=== PATIENT | female | born 1995 | race Caucasian/White ===

== ENCOUNTER 2018-03-09 15:57 | Inpatient (IN) | payer OTHER, MEDICAID ==
[2018-03-09] MEDS ORDERED: Nalbuphine 20 MG/ML 1 ML Syringe IVPUSH PRN (16:39)
[2018-03-09] MEDS ORDERED: Sodium Chloride 0.9% 10 ML Syringe FLUSH PRN (16:39)
[2018-03-09] MEDS ORDERED: Oxytocin/Lactated Ringers 10 UNIT/1,000 ML BAG IV SCH ×2 (16:45→22:53)
[2018-03-09] MEDS ORDERED: Lactated Ringers 1,000 ML IV SCH (16:45)
--- NOTE | 2018-03-09 18:07 | PCM.LDHP ---
L&D History of Present Illness - General Date of Service: 03/09/18 Admit Problem/Dx: Patient Status Order with Admit Dx/Problem 03/09/18 16:39 Patient Status [ADT] Routine Admission Diagnosis/Problem Admission Diagnosis/Problem Source of Information: Patient History Limitations: Reports: No Limitations - History of Present Illness Introduction:: Cassandra Wise is a 22 year old at 37 weeks 1 day by LMP consistent with 21 week ultrasound ([facility] 03/29/2018) who presents for spontaneous rupture membranes. She reports that around 3:30 she had a large gush of fluid and has had continuous leaking of fluid since then. She reports that the fluid was clear and denies any vaginal bleeding. She reports that she has been having some contractions about every 10 minutes that last for about a minute at a time. She rates the contractions at 4-5/10 on a pain scale. She reports good movement. Timing/Duration: Reports: sudden onset (gush of fluid at around 3:30 PM), intermittent (contractions every 10 minutes) Location, : Reports: Lower back, Pelvic Quality: Reports: Ache Severity: Moderate Pain Score: 4 Improves with: Reports: None Worsens with: Reports: None Associated Symptoms: Reports: vaginal fluid, large amount. Denies: vaginal bleeding, vaginal discharge Present Illness Comments:: Cassandra Wise is a 22-year-old at 37 weeks 1 day by LMP consistent with 21 week ultrasound. She has had routine care with Dr. Gipson since 12 weeks gestational age. Review of her labs shows A+ blood type with negative antibody screen. Her hematocrit was 39.0 with hemoglobin of 13.4 and platelets of 254 on 09/18/2017. She was rubella equivocal in 2018. Her RPR, hepatitis B surface antigen and HIV were all negative. Her gonorrhea and chlamydia tests were negative. Her 1 hour glucose test was normal at 122 and repeat hemoglobin was 11.9 with platelets of 237 on 01/16/2018. She was GBS negative. She had a normal anatomy ultrasound done on 11/13/2017. Her Pap smear was normal. Last was delivery at term, 07/07/2013, 40 weeks 2 days, 3345 g (7 lbs. 6 oz.), , no complications during the , no epidural with delivery Her has been complicated by: * Asthma in - she reports that she has only had to use her rescue inhaler during a illness in the summer months of the . * Rubella equivocal, patient will receive vaccine after delivery * History of MRSA infection after her hand surgery during high school, she has had testing done during this that was negative. * History of OCD, anxiety and depression, currently not requiring any medications. She has not been on medications for several years. 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 - Infectious Disease History Infectious Disease History: Reports: MRSA, Other (See Below) Other Infectious Disease History: 3 negative tests in 2011 - Past Surgical History HEENT Surgical History: Reports: Eye Surgery Musculoskeletal Surgical History: Reports: Other (See Below) Other Musculoskeletal Surgeries/Procedures:: Hand surgery Social & Family History - Tobacco Use Smoking Status *Q: Former Smoker Packs/Tins Daily: 0.2 Used Tobacco, but Quit: Yes Month/Year Tobacco Last Used: 09/2015 - Tobacco Core Measures Tobacco Use/Smoking Within Last 30 Days: No Smokeless Tobacco Use in Last 30 Days: No - Alcohol Use Alcohol Use History: No - Recreational Drug Use Recreational Drug Use: Yes Recreational Drug Type: Reports: Marijuana/Hashish - Living Situation & Occupation Living situation: Reports: with Significant Other H&P Review of Systems - Review of Systems: Review Of Systems: See Below General: Denies: Fever, Chills, Malaise, Weakness, Fatigue HEENT: Denies: Headaches, Rhinitis, Post Nasal Drip, Sinus Congestion, Sore Throat, Visual Changes Pulmonary: Denies: Shortness of Breath, Wheezing, Cough Cardiovascular: Denies: Chest Pain, Palpitations, Dyspnea on Exertion Gastrointestinal: Denies: Abdominal Pain, Constipation, Diarrhea, Nausea, Vomiting Genitourinary: Denies: Dysuria, Frequency, Burning, Pain, Urgency Musculoskeletal: Reports: Back Pain (and hip pain). Denies: Joint Pain, Muscle Pain Skin: Denies: Rash, Lesions Psychiatric: Denies: Depression, Anxiety L&D Exam - Exam Exam: See Below - Vital Signs Vital Signs: Last Vital Signs Temp 36.3 C 03/09/18 16:04 Pulse 89 03/09/18 16:04 Resp 18 03/09/18 16:04 BP 123/74 03/09/18 16:04 Pulse Ox Weight: 56.518 kg - OB Specific Contraction Duration (sec): 30-45 Contraction Frequency (min): 2-3 Contraction Intensity: Mild Movement: Active Heart Tones: Present Heart Tones per Min: 120 (+15 x 15 accelerations, no decelerations) Heart Rate (FHR) Variability: Moderate (6-25 bmp) Presentation: Vertex Estimated Weight: 6-6.5 pounds by Rafat's - Arriaga Score Arriaga Score Cervix Position: Midposition Arriaga Score Consistency: Soft Arriaga Score Effacement: >80% (100%) Arriaga Score Dilation: 3-4 cm (3 cm) Arriaga Score Infant's Station: -2 Arriaga Score Total: 9 - Exam General: Alert, Oriented HEENT: Conjunctiva Clear, EOMI Neck: Supple, Trachea Midline Lungs: Clear to Auscultation, Normal Respiratory Effort Cardiovascular: Regular Rate, Regular Rhythm GI/Abdominal Exam: Soft, Non-Tender, No Distention, Other (gravid). No: Guarding, Rigid, Rebound Extremities: Normal Inspection, Normal Range of Motion, No Pedal Edema Skin: Warm, Dry, Intact Psychiatric: Alert, Normal Affect, Normal Mood - Patient Data Lab Results Last 24 hrs: Laboratory Results - last 24 hr 03/09/18 Range/Units 17:06 WBC 7.36 (3.98-10.04) K/mm3 RBC 3.85 L (3.98-5.22) M/mm3 Hgb 11.4 (11.2-15.7) gm/L Hct 35.0 (34.1-44.9) % MCV 90.9 (79.4-94.8) fl MCH 29.6 (25.6-32.2) pg MCHC 32.6 (32.2-35.5) g/dl RDW Std Deviation 43.9 (36.4-46.3) fL Plt Count 182 (182-369) K/mm3 MPV 11.9 (9.4-12.3) fl Neut % (Auto) 65.8 (34.0-71.1) % Lymph % (Auto) 23.0 (19.3-51.7) % [place] % (Auto) 9.6 (4.7-12.5) % Eos % (Auto) 1.2 (0.7-5.8) Baso % (Auto) 0.1 (0.1-1.2) % Neut # (Auto) 4.84 (1.56-6.13) K/mm3 Lymph # (Auto) 1.69 (1.18-3.74) K/mm3 [place] # (Auto) 0.71 H (0.24-0.36) K/mm3 Eos # (Auto) 0.09 (0.04-0.36) K/mm3 Baso # (Auto) 0.01 (0.01-0.08) K/mm3 Result Diagrams: 03/09/18 17:06 - Problem List (1) 37 weeks gestation of SNOMED Code(s): 73645277 ICD Code: Z3A.37 - 37 WEEKS GESTATION OF Status: Acute Current Visit: Yes (2) Rubella non-immune status, antepartum SNOMED Code(s): 079230389 ICD Code: O99.89 - OTH DISEASES AND CONDITIONS COMPL PREG/CHLDBRTH; Z28.3 - UNDERIMMUNIZATION STATUS Status: Acute Current Visit: Yes (3) Asthma during SNOMED Code(s): 19651225393136 ICD Code: O99.519 - DISEASES OF THE RESP SYS COMP , UNSP TRIMESTER; J45.909 - UNSPECIFIED ASTHMA, UNCOMPLICATED Status: Acute Current Visit: Yes (4) History of anxiety disorder SNOMED Code(s): 339019149 ICD Code: Z86.59 - PERSONAL HISTORY OF OTHER MENTAL AND BEHAVIORAL DISORDERS Status: Acute Current Visit: Yes Problem List Initiated/Reviewed/Updated: Yes Orders Last 24hrs: Active Orders 24 hr Category Date Time Status Patient Status [ADT] Routine ADT 03/09/18 16:39 Active Activity as Tolerated [RC] PFP Care 03/09/18 16:39 Active Communication Order [RC] ASDIRECTED Care 03/09/18 16:39 Active Heart Tones [RC] ASDIRECTED Care 03/09/18 16:39 Active Non Stress Test [RC] PER UNIT ROUTINE Care 03/09/18 16:39 Active Notify Provider [RC] PFP Care 03/09/18 16:39 Active Notify Provider [RC] PRN Care 03/09/18 16:39 Active Peripheral IV Care [RC] . DIRECTED Care 03/09/18 16:39 Active Vital Signs [RC] PER UNIT ROUTINE Care 03/09/18 16:39 Active Regular Diet [DIET] Diet 03/09/18 Lunch Active RAPID PLASMA REAGIN,RPR [CHEM] Routine Lab 03/09/18 17:06 Received Lactated Ringers [Ringers, Lactated] 1,000 ml Med 03/09/18 16:45 Active IV ASDIRECTED Nalbuphine [Nubain] Med 03/09/18 16:39 Active 10 mg IVPUSH Q2H PRN Oxytocin/Lactated Ringers [Pitocin in LR 10 Units/1,000 Med 03/09/18 16:45 Active ML] 10 unit in 1,000 ml IV .CONTINUOUS Sodium Chloride 0.9% [Saline Flush] Med 03/09/18 16:39 Active 10 ml FLUSH ASDIRECTED PRN Electronic Heart Tones Ext w TOCO [WOMSER] Oth 03/09/18 16:39 Ordered Routine Electronic Heart Tones Internal [WOMSER] Per Unit Oth 03/09/18 16:39 Ordered Routine Peripheral IV Insertion Adult [OM.PC] Routine Oth 03/09/18 16:39 Ordered Resuscitation Status Routine Resus Stat 03/09/18 16:39 Ordered Medication Orders Lactated Ringer's (Ringers, Lactated) 1,000 mls @ 100 mls/hr IV ASDIRECTED RIKY Oxytocin/Lactated Ringer's (Pitocin In Lr 10 Units/1,000 Ml) 10 unit in 1,000 mls @ 500 mls/hr IV .CONTINUOUS RIKY Nalbuphine HCl (Nubain) 10 mg IVPUSH Q2H PRN PRN Reason: pain Sodium Chloride (Saline Flush) 10 ml FLUSH ASDIRECTED PRN PRN Reason: Keep Vein Open Assessment/Plan Comment:: Refer to observation for spontaneous rupture of membranes Start Pitocin for augmentation of labor if patient has not had any change in cervical dilation after her next cervical exam. Her most recent cervical exam was unchanged at 3 cm over the course of [address] IV and have Lactated Ringer's at 125 ml/hr May have small amounts of regular diet Activity as tolerated May have epidural as desired. Plans to avoid epidural if possible. Plans to breast-feed after delivery Anticipate vaginal delivery unless otherwise indicated Gavin Wahl M.D. 6:17 PM 03/09/2018
[2018-03-09] MEDS ORDERED: Lidocaine 1% 50 ML MDV ONE (21:22)
--- NOTE | 2018-03-09 21:59 | PCM.DEL ---
L & D Note - General Info Date of Service: 03/09/18 Mother's Due Date: 03/29/18 - Delivery Note Labor: Spontaneous Delivery Outcome: Livebirth Infant Delivery Method: Spontaneous Vaginal Delivery-Single Presentation: Left Occiput Anterior (AI) Nuchal Cord: None Prep: Povidone-Iodine (Betadine Anesthesia Type: Local Anesthetic: Lidocaine (Xylocaine) 1% Plain Local Anesthetic Volume: Other (10 mL) Amniotic Fluid Description: Clear Episiotomy Type: None Laceration: 1st Degree, Labial (Left labial repaired with 4-0 Vicryl) Suture type: Vicryl Suture size: 4-0 (Running fashion) Placenta: Intact, Spontaneous Cord: 3 Vessels Estimated Blood Loss: 250 Resuscitation Needed: No [place]: Bulb Syringe, Stimulated, Warmed, [place] Used Provider: Gavin Wahl Score 1 min: 8 Score 5 min: 9 Second Stage Interventions: Reports: Pushing Effectively, Pushing, Stirrups/Leg Supports Delivery Comments (Free Text/Narrative):: Stage I: Cassandra Wise was admitted for spontaneous rupture membranes. On admission her cervix was dilated to 3 cm. She was GBS negative. She was roxane regularly on her own and made slow progression to 5 cm. She then quickly progressed to complete and pushing. Stage II: On 03/09/2018 she had a normal vaginal delivery of a live male at 2116. Apgars of 8 & 9. Weight of 2865 g (6 lbs 5 oz). Length of 19 inches. There was nuchal cord. Infant was delivered in AI position. The cord was doubly clamped and cut by father of the infant. Infant was placed on mother's abdomen. Stage III: She had a spontaneous delivery of an intact placenta in Too presentation. Three vessel cord. She was given pitocin and fundal massage. She had a left labial first-degree laceration that was repaired with 4-0 Vicryl in running fashion. Mom and baby were stable to recovery. EBL of 250 mL. Gavin Wahl MD 9:53 PM 03/09/2018 - General Info Date of Service: 03/09/18 - Patient Data Vitals - Most Recent: Last Vital Signs Temp 36.3 C 03/09/18 16:04 Pulse 89 03/09/18 16:04 Resp 18 03/09/18 16:04 BP 123/74 03/09/18 16:04 Pulse Ox Weight - Most Recent: 56.518 kg Lab Results Last 24 Hours: Laboratory Results - last 24 hr 03/09/18 Range/Units 17:06 WBC 7.36 (3.98-10.04) K/mm3 RBC 3.85 L (3.98-5.22) M/mm3 Hgb 11.4 (11.2-15.7) gm/L Hct 35.0 (34.1-44.9) % MCV 90.9 (79.4-94.8) fl MCH 29.6 (25.6-32.2) pg MCHC 32.6 (32.2-35.5) g/dl RDW Std Deviation 43.9 (36.4-46.3) fL Plt Count 182 (182-369) K/mm3 MPV 11.9 (9.4-12.3) fl Neut % (Auto) 65.8 (34.0-71.1) % Lymph % (Auto) 23.0 (19.3-51.7) % [place] % (Auto) 9.6 (4.7-12.5) % Eos % (Auto) 1.2 (0.7-5.8) Baso % (Auto) 0.1 (0.1-1.2) % Neut # (Auto) 4.84 (1.56-6.13) K/mm3 Lymph # (Auto) 1.69 (1.18-3.74) K/mm3 [place] # (Auto) 0.71 H (0.24-0.36) K/mm3 Eos # (Auto) 0.09 (0.04-0.36) K/mm3 Baso # (Auto) 0.01 (0.01-0.08) K/mm3 Med Orders - Current: Current Medications Lactated Ringer's (Ringers, Lactated) 1,000 mls @ 100 mls/hr IV ASDIRECTED RIKY Oxytocin/Lactated Ringer's (Pitocin In Lr 10 Units/1,000 Ml) 10 unit in 1,000 mls @ 500 mls/hr IV .CONTINUOUS RIKY Nalbuphine HCl (Nubain) 10 mg IVPUSH Q2H PRN PRN Reason: pain Sodium Chloride (Saline Flush) 10 ml FLUSH ASDIRECTED PRN PRN Reason: Keep Vein Open Discontinued Medications Lidocaine HCl (Xylocaine 1%) Confirm Administered Dose 50 ml .ROUTE .K-MED ONE Stop: 03/09/18 21:23 - Problem List & Annotations (1) 37 weeks gestation of SNOMED Code(s): 23455791 Code(s): Z3A.37 - 37 WEEKS GESTATION OF Status: Acute Current Visit: Yes (2) Rubella non-immune status, antepartum SNOMED Code(s): 175357395 Code(s): O99.89 - OTH DISEASES AND CONDITIONS COMPL PREG/CHLDBRTH; Z28.3 - UNDERIMMUNIZATION STATUS Status: Acute Current Visit: Yes (3) Asthma during SNOMED Code(s): 16054464619198 Code(s): O99.519 - DISEASES OF THE RESP SYS COMP , UNSP TRIMESTER; J45.909 - UNSPECIFIED ASTHMA, UNCOMPLICATED Status: Acute Current Visit: Yes (4) History of anxiety disorder SNOMED Code(s): 472121902 Code(s): Z86.59 - PERSONAL HISTORY OF OTHER MENTAL AND BEHAVIORAL DISORDERS Status: Acute Current Visit: Yes (5) Vaginal delivery SNOMED Code(s): 908914521 Code(s): O80 - ENCOUNTER FOR FULL-TERM UNCOMPLICATED DELIVERY Status: Acute Current Visit: Yes (6) First degree perineal laceration during delivery SNOMED Code(s): 751074263 Code(s): O70.0 - FIRST DEGREE PERINEAL LACERATION DURING DELIVERY Status: Acute Current Visit: Yes - Problem List Review Problem List Initiated/Reviewed/Updated: Yes - My Orders Last 24 Hours: My Active Orders 03/09/18 16:39 Patient Status [ADT] Routine Activity as Tolerated [RC] PFP Communication Order [RC] ASDIRECTED Heart Tones [RC] ASDIRECTED Non Stress Test [RC] PER UNIT ROUTINE Notify Provider [RC] PFP Notify Provider [RC] PRN Peripheral IV Care [RC] . DIRECTED Vital Signs [RC] PER UNIT ROUTINE Nalbuphine [Nubain] 10 mg IVPUSH Q2H PRN Sodium Chloride 0.9% [Saline Flush] 10 ml FLUSH ASDIRECTED PRN Electronic Heart Tones Ext w TOCO [WOMSER] Routine Electronic Heart Tones Internal [WOMSER] Per Unit Routine Peripheral IV Insertion Adult [OM.PC] Routine Resuscitation Status Routine 03/09/18 16:45 Lactated Ringers [Ringers, Lactated] 1,000 ml IV ASDIRECTED Oxytocin/Lactated Ringers [Pitocin in LR 10 Units/1,000 ML] 10 unit in 1,000 ml IV .CONTINUOUS 03/09/18 17:06 RAPID PLASMA REAGIN,RPR [CHEM] Routine 03/09/18 21:48 Patient Status Manage Transfer [TRANSFER] Routine 03/09/18 Lunch Regular Diet [DIET] - Plan Plan:: Admit to inpatient following normal spontaneous vaginal delivery Continue Pitocin per unit protocol following delivery of placenta and lactated Ringer's until tolerating regular diet Regular diet Vitals per unit routine Ibuprofen and Tylenol for pain control Assist with breast-feeding as needed Continue to monitor lochia MMR for rubella equivocal status Anticipate discharge home on day #1 or #2 Gavin Wahl MD 9:58 PM 03/09/2018
[2018-03-09] MEDS ORDERED: Lanolin 100% Cream 7 GM Tube TOP PRN (22:53)
[2018-03-09] MEDS ORDERED: Witch Hazel Medicated Pads 100/Jar TOP PRN (22:53)
[2018-03-09] MEDS ORDERED: Benzocaine/Menthol 20%-0.5% Spray 56 GM Canister TOP PRN (22:53)
[2018-03-09] MEDS ORDERED: Magnesium Hydroxide 400 MG/5 ML Susp 30 ML Cup PO PRN (22:53)
[2018-03-09] MEDS ORDERED: Measles, Mumps & Rubella Vaccine 0.5 ML SDV SUBCUT ONE (22:53)
[2018-03-09] MEDS ORDERED: Hydrocortisone Acetate 25 MG Supp RECTAL PRN (22:53)
[2018-03-09] MEDS ORDERED: Docusate Sodium 100 MG Cap PO PRN (22:53)
[2018-03-09] MEDS: Ibuprofen 600 MG Tab PO PRN (23:06)
[2018-03-10] MEDS: Acetaminophen 325 MG Tab PO PRN ×3 (03:20→20:08)
--- NOTE | 2018-03-10 06:40 | PCM.SN ---
- Free Text/Narrative Note: Post Progress Note PPD # 1 Subjective: Doing well overall. Ambulating minimal amount since delivery late last evening without difficulty. Lochia minimal. Voiding without difficulty. Tolerating regular diet without nausea or vomiting. Pain controlled with oral medications. She is having some cramping with breast-feeding. Breast feeding with minimal difficulty. Objective: Vitals: Vital Signs - 24 hr 03/09/18 03/09/18 03/09/18 15:53 16:00 16:04 Temperature Temperature [ 36.3 C Temporal] Pulse, 90 89 Peripheral Pulse, 89 Peripheral [ Pulse Oximetry] Respiratory 18 Rate Blood Pressure 127/93 H 123/74 Blood Pressure 123/74 [Upper Arm] O2 Sat by Pulse Oximetry 03/09/18 03/09/18 03/09/18 18:06 21:27 21:30 Temperature Temperature [ Temporal] Pulse, 103 H 102 H 95 Peripheral Pulse, Peripheral [ Pulse Oximetry] Respiratory Rate Blood Pressure 107/69 118/66 124/79 Blood Pressure [Upper Arm] O2 Sat by Pulse Oximetry 03/09/18 03/09/18 03/09/18 22:00 22:32 23:00 Temperature Temperature [ Temporal] Pulse, 85 105 H 74 Peripheral Pulse, Peripheral [ Pulse Oximetry] Respiratory Rate Blood Pressure 117/69 100/87 118/82 Blood Pressure [Upper Arm] O2 Sat by Pulse Oximetry 03/10/18 03:28 Temperature 36.8 C Temperature [ Temporal] Pulse, 74 Peripheral Pulse, Peripheral [ Pulse Oximetry] Respiratory 16 Rate Blood Pressure 113/85 Blood Pressure [Upper Arm] O2 Sat by Pulse 99 Oximetry Physical Exam General: Alert and oriented, no acute distress Lungs: Clear to auscultation bilaterally Heart: Regular rate and rhythm Abdomen: Soft, minimal appropriate tenderness, non-distended, fundus midline, nontender, and at the umbilicus Extremities: No edema ASSESSMENT: 22-year-old female s/p normal vaginal delivery PPD #1, complicated by asthma, rubella equivocal, history of MRSA infection, history of OCD, anxiety and depression and declined TDaP vaccine in PLAN: Doing well Breast feeding with minimal difficulty. Assist as needed Lochia minimal. Continue to monitor for appropriate lochia. Continue routine care Anticipate discharge home tomorrow Gavin Wahl MD 6:39 AM 03/10/2018
[2018-03-10] MEDS: Ibuprofen 600 MG Tab PO PRN ×2 (06:59→15:04)
[2018-03-10] MEDS: Prenatal Multivitamin with Calcium/Folic Acid/Iron Tab PO SCH (09:20)
[2018-03-11] MEDS: Ibuprofen 600 MG Tab PO PRN ×2 (04:08→10:02)
--- NOTE | 2018-03-11 09:59 | PCM.SN ---
- Free Text/Narrative Note: Post Progress Note PPD # 2 Subjective: Doing well overall. Ambulating without difficulty. Lochia minimal. Voiding without difficulty. Tolerating regular diet without nausea or vomiting. Pain controlled with oral medications. She is having some cramping with breast- feeding but it improves with use of ibuprofen prior to breast-feeding. Breast feeding with minimal difficulty. Objective: Vitals: Vital Signs - 24 hr 03/10/18 03/10/18 03/11/18 15:18 19:59 03:45 Temperature 36.7 C 37.1 C 36.7 C Pulse, 81 67 57 L Peripheral Respiratory 16 16 14 Rate Blood Pressure 120/67 111/68 100/63 O2 Sat by Pulse 98 99 99 Oximetry 03/11/18 08:42 Temperature 37.2 C Pulse, 57 L Peripheral Respiratory 16 Rate Blood Pressure 106/61 O2 Sat by Pulse 100 Oximetry Physical Exam General: Alert and oriented, no acute distress Lungs: Clear to auscultation bilaterally Heart: Regular rate and rhythm Abdomen: Soft, minimal appropriate tenderness, non-distended, fundus midline, nontender, and at the umbilicus Extremities: Trace edema in bilateral feet ASSESSMENT: 22-year-old female s/p normal vaginal delivery PPD #2, complicated by asthma, rubella equivocal, history of MRSA infection, history of OCD, anxiety and depression and declined TDaP vaccine in PLAN: Doing well Breast feeding with minimal difficulty. Assist as needed Lochia minimal. Continue to monitor for appropriate lochia. Continue routine care Discharge home today Gavin Wahl MD 9:55 AM 03/11/2018
[2018-03-11] MEDS: Prenatal Multivitamin with Calcium/Folic Acid/Iron Tab PO SCH (10:02)
--- NOTE | 2018-03-11 10:06 | PCM.DCSUM1 ---
Discharge Summary - Hospital Course Free Text/Narrative:: Labor: Spontaneous Delivery Outcome: Livebirth Delivery Method: Spontaneous Vaginal Delivery-Single Presentation: Left Occiput Anterior (AI) Nuchal Cord: None Prep: Povidone-Iodine (Betadine Anesthesia Type: Local Anesthetic: Lidocaine (Xylocaine) 1% Plain Local Anesthetic Volume: Other (10 mL) Amniotic Fluid Description: Clear Episiotomy Type: None Laceration: 1st Degree, Labial (Left labial repaired with 4-0 Vicryl) Suture type: Vicryl Suture size: 4-0 (Running fashion) Placenta: Intact, Spontaneous Cord: 3 Vessels Estimated Blood Loss: 250 Resuscitation Needed: No [place]ner: Bulb Syringe, Stimulated, Warmed, [place] Used Provider: Gavin Wahl Score 1 min: 8 Score 5 min: 9 Second Stage Interventions: Reports: Pushing Effectively, Pushing, Stirrups/Leg Supports Delivery Comments (Free Text/Narrative):: Stage I: Cassandra Wise was admitted for spontaneous rupture membranes. On admission her cervix was dilated to 3 cm. She was GBS negative. She was roxane regularly on her own and made slow progression to 5 cm. She then quickly progressed to complete and pushing. Stage II: On 03/09/2018 she had a normal vaginal delivery of a live male infant at 2116. Apgars of 8 & 9. Weight of 2865 g (6 lbs 5 oz). Length of 19 inches. There was nuchal cord. was delivered in AI position. The cord was doubly clamped and cut by father of the infant. Infant was placed on mother's abdomen. Stage III: She had a spontaneous delivery of an intact placenta in Too presentation. Three vessel cord. She was given pitocin and fundal massage. She had a left labial first-degree laceration that was repaired with 4-0 Vicryl in running fashion. Mom and baby were stable to recovery. EBL of 250 mL. HPI Initial Comments: Labor: Spontaneous Delivery Outcome: Livebirth Delivery Method: Spontaneous Vaginal Delivery-Single Presentation: Left Occiput Anterior (AI) Nuchal Cord: None Prep: Povidone-Iodine (Betadine Anesthesia Type: Local Anesthetic: Lidocaine (Xylocaine) 1% Plain Local Anesthetic Volume: Other (10 mL) Amniotic Fluid Description: Clear Episiotomy Type: None Laceration: 1st Degree, Labial (Left labial repaired with 4-0 Vicryl) Suture type: Vicryl Suture size: 4-0 (Running fashion) Placenta: Intact, Spontaneous Cord: 3 Vessels Estimated Blood Loss: 250 Resuscitation Needed: No [place]: Bulb Syringe, Stimulated, Warmed, [place] Used Provider: Gavin Wahl Score 1 min: 8 Score 5 min: 9 Second Stage Interventions: Reports: Pushing Effectively, Pushing, Stirrups/Leg Supports Delivery Comments (Free Text/Narrative):: Stage I: Cassandra Wise was admitted for spontaneous rupture membranes. On admission her cervix was dilated to 3 cm. She was GBS negative. She was roxane regularly on her own and made slow progression to 5 cm. She then quickly progressed to complete and pushing. Stage II: On 03/09/2018 she had a normal vaginal delivery of a live male infant at 2116. Apgars of 8 & 9. Weight of 2865 g (6 lbs 5 oz). Length of 19 inches. There was nuchal cord. was delivered in AI position. The cord was doubly clamped and cut by father of the . was placed on mother's abdomen. Stage III: She had a spontaneous delivery of an intact placenta in Too presentation. Three vessel cord. She was given pitocin and fundal massage. She had a left labial first-degree laceration that was repaired with 4-0 Vicryl in running fashion. Mom and baby were stable to recovery. EBL of 250 mL. Brief History: Labor: Spontaneous. Delivery Outcome: Livebirth. Delivery Method: Spontaneous Vaginal Delivery-Single. Presentation: Left Occiput Anterior (AI). Nuchal Cord: None. Prep: Povidone-Iodine (Betadine. Anesthesia Type: Local. Anesthetic: Lidocaine (Xylocaine) 1% Plain. Local Anesthetic Volume: Other (10 mL). Amniotic Fluid Description: Clear. Episiotomy Type: None. Laceration: 1st Degree, Labial (Left labial repaired with 4-0 Vicryl). Suture type: Vicryl. Suture size: 4-0 (Running fashion). Placenta: Intact, Spontaneous. Cord: 3 Vessels. Estimated Blood Loss: 250. Resuscitation Needed: No. [place]: Bulb Syringe, Stimulated, Warmed, [place] Used. Provider: Gavin Wahl. Score 1 min: 8. Score 5 min: 9. Second Stage Interventions: Reports: Pushing Effectively, Pushing, Stirrups/Leg Supports. Delivery Comments (Free Text/Narrative):: Stage I: Cassandra Wise was admitted for spontaneous rupture membranes. On admission her cervix was dilated to 3 cm. She was GBS negative. She was roxane regularly on her own and made slow progression to 5 cm. She then quickly progressed to complete and pushing. Stage II: On 03/09/2018 she had a normal vaginal delivery of a live male at 2116. Apgars of 8 & 9. Weight of 2865 g (6 lbs 5 oz). Length of 19 inches. There was nuchal cord. was delivered in AI position. The cord was doubly clamped and cut by father of the infant. Infant was placed on mother's abdomen. Stage III: She had a spontaneous delivery of an intact placenta in Too presentation. Three vessel cord. She was given pitocin and fundal massage. She had a left labial first- degree laceration that was repaired with 4-0 Vicryl in running fashion. Mom and baby were stable to recovery. EBL of 250 mL. - Discharge Data Discharge Date: 03/11/18 Discharge Disposition: Home, Self-Care 01 Condition: Good - Discharge Diagnosis/Problem(s) (1) 37 weeks gestation of SNOMED Code(s): 28285453 ICD Code: Z3A.37 - 37 WEEKS GESTATION OF Status: Acute Current Visit: Yes (2) Rubella non-immune status, antepartum SNOMED Code(s): 916346553 ICD Code: O99.89 - OTH DISEASES AND CONDITIONS COMPL PREG/CHLDBRTH; Z28.3 - UNDERIMMUNIZATION STATUS Status: Acute Current Visit: Yes (3) Asthma during SNOMED Code(s): 03153471940772 ICD Code: O99.519 - DISEASES OF THE RESP SYS COMP , UNSP TRIMESTER; J45.909 - UNSPECIFIED ASTHMA, UNCOMPLICATED Status: Acute Current Visit: Yes (4) History of anxiety disorder SNOMED Code(s): 758518199 ICD Code: Z86.59 - PERSONAL HISTORY OF OTHER MENTAL AND BEHAVIORAL DISORDERS Status: Acute Current Visit: Yes (5) Vaginal delivery SNOMED Code(s): 985700483 ICD Code: O80 - ENCOUNTER FOR FULL-TERM UNCOMPLICATED DELIVERY Status: Acute Current Visit: Yes (6) First degree perineal laceration during delivery SNOMED Code(s): 058065072 ICD Code: O70.0 - FIRST DEGREE PERINEAL LACERATION DURING DELIVERY Status: Acute Current Visit: Yes - Patient Summary/Data Operative Procedure(s) Performed: None Complications: None Consults: None Hospital Course: Cassandra Wise was admitted for spontaneous rupture membranes with clear fluid. On admission her cervix was dilated to 3 cm. She was GBS negative. She progressed to complete and began pushing. On 03/09/2018 she had a normal vaginal delivery of a live male at 2116. Apgars of 8 and 9. Weight of 2865 g (6 lbs. 5 oz.). Her course was uneventful. Her pain was well controlled and she had minimal lochia. She was ambulating, tolerating a regular diet and voiding normally. She was breast feeding. She was afebrile and her hematocrit was 35.0 on admission. She desired to be discharged home on the morning of PPD # 2. Her blood type is A+. - Patient Instructions Diet: Regular Diet as Tolerated Activity: Apply Ice, As Tolerated Activity, Other: Nothing in the vagina for 6 weeks Driving: May Drive Today Showering/Bathing: May Shower Notify Provider of: Fever, Increased Pain, Swelling and Redness, Drainage, Nausea and/or Vomiting Other/Special Instructions: Please contact your physician's office if you have heavy vaginal bleeding enough to soak a pad in less than an hour for several hours. Monitor for any signs of an infection in the breasts with severe pain or redness of the breast. - Discharge Plan *PRESCRIPTION DRUG MONITORING PROGRAM REVIEWED*: Not Applicable *COPY OF PRESCRIPTION DRUG MONITORING REPORT IN PATIENT FRANCIS: Not Applicable Home Medications: Home Meds Albuterol Sulfate [Proventil Hfa] 2 puff INH ASDIRECTED PRN 02/07/15 [History] Cetirizine [ZyrTEC] 10 tab PO DAILY 02/07/15 [History] Acetaminophen [Tylenol] 650 mg PO Q6H PRN tablet 03/11/18 [Rx] Benzocaine/Menthol [Dermoplast Pain Relief [place]] 1 spray TOP ASDIRECTED PRN canister 03/11/18 [Rx] Docusate Sodium [Colace] 100 mg PO BID PRN cap 03/11/18 [Rx] Hydrocortisone Acetate [Anucort-HC] 25 mg RECTAL BID PRN supp 03/11/18 [Rx] Ibuprofen [Motrin] 600 mg PO Q6H PRN tablet 03/11/18 [Rx] Lanolin [Lansinoh HPA] 1 applic TOP ASDIRECTED PRN tube 03/11/18 [Rx] Vit with Ca/FA/Iron [ Plus Iron] 1 each PO DAILY tablet [Rx] Yolanda Alarcon [Tucks] 1 pad TOP ASDIRECTED PRN pad 03/11/18 [Rx] Patient Handouts: Home Care Instructions for Mom, Care of a Perineal Tear Referrals: Alicia Gipson MD [Primary Care Provider] - (Follow-up in 2-3 weeks for routine visit or earlier as needed.) - Discharge Summary/Plan Comment DC Time >30 min.: No - Patient Data Vitals - Most Recent: Last Vital Signs Temp 37.2 C 03/11/18 08:42 Pulse 57 L 03/11/18 08:42 Resp 16 03/11/18 08:42 BP 106/61 03/11/18 08:42 Pulse Ox 100 03/11/18 08:42 Weight - Most Recent: 56.518 kg I&O - Last 24 hours: Intake & Output 03/10/18 03/11/18 03/11/18 22:59 06:59 14:59 Intake Total 240 Balance 240 Med Orders - Current: Current Medications Acetaminophen (Tylenol) 650 mg PO Q6H PRN PRN Reason: mild pain or fever Last Admin: 03/10/18 20:08 Dose: 650 mg Benzocaine/Menthol (Dermoplast Pain Relief [place]) 0 gm TOP ASDIRECTED PRN PRN Reason: Perineal Comfort Measure Last Admin: 03/09/18 23:07 Dose: 1 applic Docusate Sodium (Colace) 100 mg PO BID PRN PRN Reason: Constipation Emollient Ointment (Lansinoh Hpa) 0 gm TOP ASDIRECTED PRN PRN Reason: Sore Nipples Hydrocortisone Acetate (Anucort-Hc) 25 mg RECTAL BID PRN PRN Reason: Hemorrhoid pain Oxytocin/Lactated Ringer's (Pitocin In Lr 10 Units/1,000 Ml) 10 unit in 1,000 mls @ 100 mls/hr IV TITRATE RIKY; Protocol Ibuprofen (Motrin) 600 mg PO Q6H PRN PRN Reason: Mild pain or fever Last Admin: 03/11/18 10:02 Dose: 600 mg Magnesium Hydroxide (Milk Of Magnesia) 30 ml PO BEDTIME PRN PRN Reason: Constipation Prenat Multivit/Stone Grader/Iron/Folic Ac ( Plus Iron) 1 each PO DAILY RIKY Last Admin: 03/11/18 10:02 Dose: 1 each Witch Agnes (Tucks) 1 pad TOP ASDIRECTED PRN PRN Reason: Hemorrhoid pain Last Admin: 03/09/18 23:08 Dose: 1 pad Discontinued Medications Lactated Ringer's (Ringers, Lactated) 1,000 mls @ 100 mls/hr IV ASDIRECTED RIKY Oxytocin/Lactated Ringer's (Pitocin In Lr 10 Units/1,000 Ml) 10 unit in 1,000 mls @ 500 mls/hr IV .CONTINUOUS RIKY Last Admin: 03/09/18 21:16 Dose: 500 mls/hr Lidocaine HCl (Xylocaine 1%) Confirm Administered Dose 50 ml .ROUTE .STK-MED ONE Stop: 03/09/18 21:23 Measles/Mumps/Rubella Vaccine Live (M-M-R Ii Vaccine) 0.5 ml SUBCUT .ONCE ONE Stop: 03/09/18 22:54 Last Admin: 03/10/18 15:11 Dose: 0.5 ml Nalbuphine HCl (Nubain) 10 mg IVPUSH Q2H PRN PRN Reason: pain Sodium Chloride (Saline Flush) 10 ml FLUSH ASDIRECTED PRN PRN Reason: Keep Vein Open
[2018-03-11 13:11] VITALS: BP 108/65
== END 2018-03-11 14:00 | disposition home or self-care (01) | DRG 807 ==
LOC: JD.OBCHECK 15:57 → JD.OB 15:58 → OBSVTOIN 21:16
PROVIDERS: ADMIT Obstetrics & Gynecology; ATTEND Obstetrics & Gynecology
PROC: 0UQMXZZ Repair Vulva, External Approach (ICD-10-PCS; principal; 2018-03-09)
PROC: 10E0XZZ Delivery of Products of Conception, External Approach (ICD-10-PCS; principal; 2018-03-09)
DX: O69.81X0 Labor and delivery complicated by cord around neck, without compression, not applicable or unspecified (principal); Z37.0 Single live birth; O70.0 First degree perineal laceration during delivery; Z3A.37 37 weeks gestation of pregnancy; O99.52 Diseases of the respiratory system complicating childbirth; J45.909 Unspecified asthma, uncomplicated; Z86.14 Personal history of Methicillin resistant Staphylococcus aureus infection; Z88.1 Allergy status to other antibiotic agents; Z91.048 Other nonmedicinal substance allergy status; Z79.899 Other long term (current) drug therapy; O99.62 Diseases of the digestive system complicating childbirth; K29.70 Gastritis, unspecified, without bleeding; Z87.891 Personal history of nicotine dependence; Z86.59 Personal history of other mental and behavioral disorders
CPT/HCPCS: 36415; 59025; 59409; 85025; 86592; 90707; A9270-GY; J2590

== ENCOUNTER 2018-05-01 23:56 | Emergency (ER) | payer OTHER, MEDICAID ==
[2018-05-02 00:19] VITALS: BP 118/83
--- NOTE | 2018-05-02 00:39 | EDM.PDOC ---
ED HPI GENERAL MEDICAL PROBLEM - General Chief Complaint: Abdominal Pain Stated Complaint: ABDOMINAL PAIN Time Seen by Provider: 05/02/18 00:20 Source of Information: Reports: Patient, RN Notes Reviewed - History of Present Illness INITIAL COMMENTS - FREE TEXT/NARRATIVE: 22-year-old female with onset of abdominal pain, nausea vomiting several hours ago. She is been having generalized discomfort primarily upper mid abdomen with sharp, shooting cramping across the upper abdomen that comes and goes. No radiation of pain to her back. His feeling fine earlier today. She did have an IUD removed this afternoon at the clinic which she states was "partially out and had just been placed a few weeks ago. No major lower pelvic discomfort at this time. He's had some slight spotting. She is only about 3 months . No fever or chills. No chest pain or difficulty breathing. lower mid abdomen Pain Score (Numeric/FACES): 6 - Related Data Allergies Allergy/AdvReac Type Severity Reaction Status Date / Time amoxicillin [Amoxicillin] Allergy Rash Verified 03/09/18 16:04 cat dander Allergy Rash Verified 03/09/18 16:05 Home Meds: Home Meds Albuterol Sulfate [Proventil Hfa] 2 puff INH ASDIRECTED PRN 02/07/15 [History] Cetirizine [ZyrTEC] 10 tab PO DAILY 02/07/15 [History] Acetaminophen [Tylenol] 650 mg PO Q6H PRN tablet 03/11/18 [Rx] Benzocaine/Menthol [Dermoplast Pain Relief [place]] 1 spray TOP ASDIRECTED PRN canister 03/11/18 [Rx] Docusate Sodium [Colace] 100 mg PO BID PRN cap 03/11/18 [Rx] Hydrocortisone Acetate [Anucort-HC] 25 mg RECTAL BID PRN supp 03/11/18 [Rx] Ibuprofen [Motrin] 600 mg PO Q6H PRN tablet 03/11/18 [Rx] Lanolin [Lansinoh HPA] 1 applic TOP ASDIRECTED PRN tube 03/11/18 [Rx] Vit with Ca/FA/Iron [ Plus Iron] 1 each PO DAILY tablet [Rx] Witch Agnes [Tucks] 1 pad TOP ASDIRECTED PRN pad 03/11/18 [Rx] Ondansetron [Zofran ODT] 4 mg PO Q8HR PRN #7 tab.dis 05/02/18 [Rx] Past Medical History Other HEENT History: eye surgery Respiratory History: Reports: Asthma Gastrointestinal History: Reports: Gastritis 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 - Infectious Disease History Infectious Disease History: Reports: MRSA, Other (See Below) Other Infectious Disease History: 3 negative tests in 2011 - Past Surgical History HEENT Surgical History: Reports: Eye Surgery Musculoskeletal Surgical History: Reports: Other (See Below) Other Musculoskeletal Surgeries/Procedures:: Hand surgery Social & Family History - Family History Family Medical History: Noncontributory - Tobacco Use Smoking Status *Q: Never Smoker - Caffeine Use Caffeine Use: Reports: Coffee, Tea - Recreational Drug Use Recreational Drug Use: No - Living Situation & Occupation Living situation: Reports: with Significant Other ED ROS GENERAL - Review of Systems Review Of Systems: See Below Constitutional: Denies: Fever, Chills, Diaphoresis HEENT: Denies: Throat Pain Cardiovascular: Denies: Chest Pain GI/Abdominal: Reports: Abdominal Pain, Nausea, Vomiting. Denies: Diarrhea : Reports: No Symptoms Musculoskeletal: Denies: Back Pain Skin: Reports: No Symptoms Neurological: Reports: No Symptoms ED EXAM, GI/ABD - Physical Exam Exam: See Below General Appearance: Alert, Moderate Distress Eyes: Bilateral: Normal Appearance Throat/Mouth: Normal Inspection, Normal Oropharynx Head: Atraumatic. No: Facial Swelling Neck: Supple Respiratory/Chest: No Respiratory Distress, Lungs Clear, Normal Breath Sounds Cardiovascular: Regular Rate, Rhythm GI/Abdominal Exam: Tender (Moderate diffuse tenderness upper abdomen mild tenderness mid abdomen, lower abdomen soft and nontender). No: Guarding, Rebound Back Exam: No: CVA Tenderness (L), CVA Tenderness (R) Neurological: Alert, Oriented, No Motor/Sensory Deficits Skin Exam: Warm, Dry, Normal Color Course - Vital Signs Last Recorded V/S: Last Vital Signs Temp 97 F 05/02/18 00:05 Pulse 68 05/02/18 00:05 Resp 18 05/02/18 00:05 BP 118/83 02/27/19 00:05 Pulse Ox 96 05/02/18 00:05 - Orders/Labs/Meds Labs: Laboratory Tests 05/02/18 05/02/18 05/02/18 Range/Units 00:30 00:40 00:40 WBC 10.63 H (3.98-10.04) K/mm3 RBC 4.89 (3.98-5.22) M/mm3 Hgb 14.3 (11.2-15.7) gm/L Hct 43.2 (34.1-44.9) % MCV 88.3 (79.4-94.8) fl MCH 29.2 (25.6-32.2) pg MCHC 33.1 (32.2-35.5) g/dl RDW Std Deviation 44.0 (36.4-46.3) fL Plt Count 273 (182-369) K/mm3 MPV 10.1 (9.4-12.3) fl Neut % (Auto) 56.9 (34.0-71.1) % Lymph % (Auto) 28.1 (19.3-51.7) % [place] % (Auto) 8.8 (4.7-12.5) % Eos % (Auto) 5.6 (0.7-5.8) Baso % (Auto) 0.3 (0.1-1.2) % Neut # (Auto) 6.04 (1.56-6.13) K/mm3 Lymph # (Auto) 2.99 (1.18-3.74) K/mm3 [place] # (Auto) 0.94 H (0.24-0.36) K/mm3 Eos # (Auto) 0.60 H (0.04-0.36) K/mm3 Baso # (Auto) 0.03 (0.01-0.08) K/mm3 Sodium 141 (136-145) mEq/L Potassium 3.6 (3.5-5.1) mEq/L Chloride 105 (98-107) mEq/L Carbon Dioxide 27 (21-32) mEq/L Anion Gap 12.6 (5-15) BUN 22 H (7-18) mg/dL Creatinine 1.0 (0.55-1.02) mg/dL Est Cr Clr Drug Dosing 66.98 mL/min Estimated GFR (MDRD) > 60 (>60) mL/min BUN/Creatinine Ratio 22.0 H (14-18) Glucose 100 (74-106) mg/dL Calcium 9.5 (8.5-10.1) mg/dL Total Bilirubin 1.2 H (0.2-1.0) mg/dL AST 33 (15-37) U/L ALT 50 (14-59) U/L Alkaline Phosphatase 58 (46-116) U/L C-Reactive Protein (<1.0) mg/dL Total Protein 7.4 (6.4-8.2) g/dl Albumin 3.9 (3.4-5.0) g/dl Globulin 3.5 gm/dL Albumin/Globulin Ratio 1.1 (1-2) Urine Color Yellow (Yellow) Urine Appearance Slt cloudy H (Clear) Urine pH 7.5 (5.0-8.0) Ur Specific [place] 1.020 (1.005-1.030) Urine Protein Negative (Negative) Urine Glucose (UA) Negative (Negative) Urine Ketones Negative (Negative) Urine Occult Blood 1+ H (Negative) Urine Nitrite Negative (Negative) Urine Bilirubin Negative (Negative) Urine Urobilinogen 0.2 (0.2-1.0) Ur Leukocyte Esterase Negative (Negative) Urine RBC Not seen (0-5) /hpf Urine WBC 0-5 (0-5) /hpf Ur Epithelial Cells 5-10 H (0-5) /hpf Amorphous Sediment Moderate H (NOT SEEN) /hpf Urine Bacteria Moderate H (FEW) /hpf Urine Mucus Moderate H (FEW) /hpf 05/02/18 Range/Units 00:40 WBC (3.98-10.04) K/mm3 RBC (3.98-5.22) M/mm3 Hgb (11.2-15.7) gm/L Hct (34.1-44.9) % MCV (79.4-94.8) fl MCH (25.6-32.2) pg MCHC (32.2-35.5) g/dl RDW Std Deviation (36.4-46.3) fL Plt Count (182-369) K/mm3 MPV (9.4-12.3) fl Neut % (Auto) (34.0-71.1) % Lymph % (Auto) (19.3-51.7) % [place] % (Auto) (4.7-12.5) % Eos % (Auto) (0.7-5.8) Baso % (Auto) (0.1-1.2) % Neut # (Auto) (1.56-6.13) K/mm3 Lymph # (Auto) (1.18-3.74) K/mm3 [place] # (Auto) (0.24-0.36) K/mm3 Eos # (Auto) (0.04-0.36) K/mm3 Baso # (Auto) (0.01-0.08) K/mm3 Sodium (136-145) mEq/L Potassium (3.5-5.1) mEq/L Chloride (98-107) mEq/L Carbon Dioxide (21-32) mEq/L Anion Gap (5-15) BUN (7-18) mg/dL Creatinine (0.55-1.02) mg/dL Est Cr Clr Drug Dosing mL/min Estimated GFR (MDRD) (>60) mL/min BUN/Creatinine Ratio (14-18) Glucose (74-106) mg/dL Calcium (8.5-10.1) mg/dL Total Bilirubin (0.2-1.0) mg/dL AST (15-37) U/L ALT (14-59) U/L Alkaline Phosphatase (46-116) U/L C-Reactive Protein < 0.2 (<1.0) mg/dL Total Protein (6.4-8.2) g/dl Albumin (3.4-5.0) g/dl Globulin gm/dL Albumin/Globulin Ratio (1-2) Urine Color (Yellow) Urine Appearance (Clear) Urine pH (5.0-8.0) Ur Specific [place] (1.005-1.030) Urine Protein (Negative) Urine Glucose (UA) (Negative) Urine Ketones (Negative) Urine Occult Blood (Negative) Urine Nitrite (Negative) Urine Bilirubin (Negative) Urine Urobilinogen (0.2-1.0) Ur Leukocyte Esterase (Negative) Urine RBC (0-5) /hpf Urine WBC (0-5) /hpf Ur Epithelial Cells (0-5) /hpf Amorphous Sediment (NOT SEEN) /hpf Urine Bacteria (FEW) /hpf Urine Mucus (FEW) /hpf Meds: Medications Discontinued Medications Generic Name Dose Route Start Last Admin Trade Name Freq PRN Reason Stop Dose Admin Famotidine 20 mg 05/02/18 00:38 05/02/18 00:52 Pepcid IVPUSH 05/02/18 00:39 20 mg ONETIME ONE Administration Sodium Chloride 1,000 mls @ 999 mls/hr 05/02/18 00:45 05/02/18 00:52 Normal Saline IV 999 mls/hr ONETIME RIKY Administration Ondansetron HCl 4 mg 05/02/18 00:38 05/02/18 00:52 Zofran IVPUSH 05/02/18 00:39 4 mg ONETIME ONE Administration - Re-Assessments/Exams Free Text/Narrative Re-Assessment/Exam: 05/02/18 04:10 Patient felt tremendously better after 1 L of IV fluid, Zofran and Pepcid IV. She states the pain is almost gone, nausea is gone, no further vomiting while here in the ED. Blood count was just over 10,000, C-reactive protein less than 0.2. UA does show some bacteria but no white blood cells, leukocyte negative with some epithelial cells, contaminated specimen. She did feel up to going home at time of discharge without further medication, discharge instructions as documented. Departure - Departure Time of Disposition: 01:44 Disposition: Home, Self-Care 01 Condition: Fair Clinical Impression: Abdominal pain Qualifiers: Abdominal location: generalized Qualified Code(s): R10.84 - Generalized abdominal pain Vomiting Qualifiers: Vomiting type: unspecified Vomiting Intractability: non-intractable Nausea presence: with nausea Qualified Code(s): R11.2 - Nausea with vomiting, unspecified - Discharge Information Prescriptions: Ondansetron [Zofran ODT] 4 mg PO Q8HR PRN #7 tab.dis PRN Reason: Nausea/Vomiting Instructions: Abdominal Pain, Adult, [id number], Vomiting, Adult Referrals: Gavin Wahl MD [Primary Care Provider] - Forms: ED Department Discharge Additional Instructions: Clear liquids until this later afternoon or evening, than very careful bland diet as tolerated. Zofran if needed for further nausea or vomiting. Clinic if not getting back to normal within 1-2 days as expected, return to ED if symptoms worsening in any way.
[2018-05-02] MEDS: Ondansetron 4 MG/2 ML SDV IVPUSH ONE (00:52)
[2018-05-02] MEDS: Famotidine 20 MG/2 ML SDV IVPUSH ONE (00:52)
[2018-05-02] MEDS: Sodium Chloride 0.9% 1,000 ML IV SCH (00:52)
== END 2018-05-02 01:55 | disposition home or self-care (01) ==
LOC: JD.ED 23:56
DX: R10.84 Generalized abdominal pain (principal); R11.2 Nausea with vomiting, unspecified; F41.9 Anxiety disorder, unspecified; Z79.899 Other long term (current) drug therapy; Z88.1 Allergy status to other antibiotic agents
CPT/HCPCS: 36415; 80053; 81001; 85025; 86140; 96361; 96374; 96375; 99284; J2405; J3490; J7040

== ENCOUNTER 2019-04-14 17:55 | Emergency (ER) | payer OTHER ==
[2019-04-14 18:22] VITALS: BP 122/91; PULSE 119
[2019-04-14 19:49] LABS: ACETAMINOPHEN 0 ug/mL (10-30)
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
== END 2019-04-14 21:25 | disposition home or self-care (01) ==
LOC: JD.ED 17:55
DX: R45.851 Suicidal ideations (principal); Z88.1 Allergy status to other antibiotic agents; Z91.048 Other nonmedicinal substance allergy status; Z87.891 Personal history of nicotine dependence
CPT/HCPCS: 36415; 80053; 80306; 80307; 81025; 84443; 85007; 85027; 99284